=== PATIENT | male | born 1975 | race Two or more races ===

== ENCOUNTER → 2023-05-29 11:04 | Outpatient (REF) | payer OTHER, SELFPAY | LOC: RAD 11:04 | PROVIDERS: ATTENDING PHYSICIAN Family Medicine | DX: R50.9 Fever, unspecified (principal) | CPT/HCPCS: 71046 ==

== ENCOUNTER → 2023-07-09 06:17 | Day surgery (SDC) | payer OTHER, SELFPAY ==
[2023-07-09 08:43] LABS: Glucose - Point of Care 80 mg/dl (70-99)
== END ==
LOC: GI 06:17
PROVIDERS: ATTENDING PHYSICIAN Internal Medicine Gastroenterology
DX: D50.0 Iron deficiency anemia secondary to blood loss (chronic) (principal); K57.30 Diverticulosis of large intestine without perforation or abscess without bleeding; R10.13 Epigastric pain; K25.9 Gastric ulcer, unspecified as acute or chronic, without hemorrhage or perforation; K44.9 Diaphragmatic hernia without obstruction or gangrene; C83.33 Diffuse large B-cell lymphoma, intra-abdominal lymph nodes; D12.4 Benign neoplasm of descending colon; D12.5 Benign neoplasm of sigmoid colon; K62.1 Rectal polyp; K63.5 Polyp of colon
CPT/HCPCS: 45385; 45380; 43239; 88305; 82962; 88341; 88342; 88365

== ENCOUNTER → 2024-01-14 06:17 | Day surgery (SDC) | payer OTHER, SELFPAY | LOC: GI 06:17 | PROVIDERS: ATTENDING PHYSICIAN Internal Medicine Gastroenterology | DX: K44.9 Diaphragmatic hernia without obstruction or gangrene (principal); Z87.11 Personal history of peptic ulcer disease; Z98.890 Other specified postprocedural states; Z85.72 Personal history of non-Hodgkin lymphomas | CPT/HCPCS: 43239; 88305; 88341; 88342 ==

== ENCOUNTER → 2024-06-22 07:41 | Outpatient (REF) | payer OTHER, SELFPAY | LOC: RAD 07:41 | PROVIDERS: ATTENDING PHYSICIAN Internal Medicine Medical Oncology; FAMILY PHYSICIAN Physician Assistant; REFERRING PHYSICIAN Internal Medicine | DX: C83.33 Diffuse large B-cell lymphoma, intra-abdominal lymph nodes (principal) | CPT/HCPCS: 71260; 74177; Q9967 ==

== ENCOUNTER 2025-03-13 06:27 | Day surgery (SDC) | payer OTHER, SELFPAY | END 2025-03-13 12:52 | disposition home or self-care (01) | LOC: GI 06:27 | PROVIDERS: ATTENDING PHYSICIAN Internal Medicine Gastroenterology | DX: C83.398 Diffuse large B-cell lymphoma of other extranodal and solid organ sites (principal); K44.9 Diaphragmatic hernia without obstruction or gangrene; K25.9 Gastric ulcer, unspecified as acute or chronic, without hemorrhage or perforation; Z87.11 Personal history of peptic ulcer disease | CPT/HCPCS: 43239; 88305 ==